=== PATIENT | female | born 1945 | race Caucasian/White ===

== ENCOUNTER 2020-08-24 22:15 | Emergency (ER) | payer MEDICARE, OTHER ==
[~2020-08-24] VITALS: Ht 172.7 cm; Wt 67.2 kg
[2020-08-24] MEDS ORDERED: ONDANSETRON 4MG/2ML VIAL IV ONE (22:50)
[2020-08-24] MEDS ORDERED: MORPHINE 4 MG/ML 1ML VIAL/SYRINGE (J2270) IV ONE (22:50)
[2020-08-24 23:15] LABS: BASO % 0.4 % (0.0-1.0); EOS # 0.1 10^3/uL (0.0-0.5); EOS % 0.9 % (0.0-3.0); HEMATOCRIT 39.5 % (36.0-47.0); HEMOGLOBIN 12.8 g/dl (12.0-15.5); LYMPH # 1.9 10^3/uL (1.5-5.0); LYMPH % 17.6 % (24.0-44.0); MEAN CORPUSCULAR HEMOGLOBIN 29.2 pg (27.0-33.0); MEAN CORPUSCULAR HGB CONC 32.4 g/dl (32.0-36.5); MEAN CORPUSCULAR VOLUME 90.2 fl (80.0-96.0); MONO # 0.7 10^3/uL (0.0-0.8); MONO % 6.7 % (2.0-8.0); NEUTROPHILS # 7.8 10^3/uL (1.5-8.5); PLATELET COUNT, AUTOMATED 294 10^3/uL (150-450); RED BLOOD COUNT 4.38 10^6/uL (4.00-5.40); WHITE BLOOD COUNT 10.5 10^3/uL (4.0-10.0)
[2020-08-24] MEDS ORDERED: fentaNYL 100 MCG/2 ML INJECTION (J3010) IV ONE (23:40)
[2020-08-24 23:53] LABS: ALBUMIN 3.8 GM/DL (3.2-5.2); ALT/SGPT 39 U/L (12-78); BILIRUBIN,DIRECT < 0.1 MG/DL (0.0-0.2); BILIRUBIN,TOTAL 0.2 MG/DL (0.2-1.0); BLOOD UREA NITROGEN 17 MG/DL (7-18); CARBON DIOXIDE LEVEL 21 MEQ/L (21-32); CHLORIDE LEVEL 108 MEQ/L (98-107); CREATININE FOR GFR 0.82 MG/DL (0.55-1.30); GLOMERULAR FILTRATION RATE > 60.0 (>39); GLUCOSE, FASTING 140 MG/DL (70-100); POTASSIUM SERUM 3.7 MEQ/L (3.5-5.1); SODIUM LEVEL 140 MEQ/L (136-145); TOTAL PROTEIN 7.4 GM/DL (6.4-8.2)
--- NOTE | 2020-08-25 00:39 | REPVR ---
PROCEDURE INFORMATION: Exam: XR Left Shoulder Exam date and time: 08/24/2020 10:59 PM Age: 74 years old Clinical indication: Pain; Shoulder; Left; Additional info: Fall TECHNIQUE: Imaging protocol: XR Left shoulder. Views: 2 or more views. COMPARISON: No relevant prior studies available. FINDINGS: The bones appear slightly demineralized. There is acute displaced fracture of involving the proximal left humerus extending from the surgical neck into the proximal diaphysis. Glenohumeral alignment is maintained. There is widening of the acromioclavicular joint space to 12.8 mm, likely postoperative. Coracoclavicular distance is preserved. IMPRESSION: Acute proximal humeral fracture. Findings discussed above in detail. Electronically signed by: Heriberto Pabon On 08/25/2020 00:38:28 AM
[2020-08-25] MEDS ORDERED: ceFAZolin SOD 1 GM in D5W MINI-BAG PLUS 50 ML IV ONE (00:40)
--- NOTE | 2020-08-25 00:42 | REPVR ---
PROCEDURE INFORMATION: Exam: XR Left Elbow Exam date and time: 08/24/2020 10:59 PM Age: 74 years old Clinical indication: Pain; Elbow; Left; Additional info: Fall TECHNIQUE: Imaging protocol: XR Left elbow. Views: 3 or more views. COMPARISON: None. FINDINGS: There is acute, slightly comminuted, displaced fracture involving the proximal ulna and olecranon process. There is proximal retraction of the olecranon process. No articular malalignment is seen at the elbow. No additional acute osseous injury is seen. Mild bony proliferative changes noted at the distal humeral medial and lateral epicondyles which may be related to old injuries or chronic repetitive trauma. There is soft tissue swelling around the elbow extending into the forearm as well as soft tissue lucencies consistent with soft tissue gas. There is soft tissue gas at the proximal ulnar fracture site, as well as within the elbow joint itself, suggesting open injury. IMPRESSION: Displaced intra-articular ulnar fracture. Soft tissue swelling and soft tissue gas, including gas at the fracture site and within the elbow joint itself. Findings discussed above in detail. Electronically signed by: Heriberto Pabon On 08/25/2020 00:42:09 AM
[2020-08-25] MEDS ORDERED: AMLO25TA PO (01:11)
[2020-08-25] MEDS ORDERED: TEMA15CA2 PO (01:11)
[2020-08-25] MEDS ORDERED: ECOT81TA5 PO (01:11)
[2020-08-25] MEDS ORDERED: BENA20TA PO (01:11)
[2020-08-25 01:13] LABS: RSV AMPLIFICATION NEGATIVE (NEGATIVE)
[2020-08-25] MEDS ORDERED: GENTAMICIN 120 MG in D5W 50 ML IV ONE (01:30)
[2020-08-25] MEDS ORDERED: fentaNYL 100 MCG/2 ML INJECTION (J3010) IV ONE (01:40)
[2020-08-25 03:07] VITALS: BP 146/80
[2020-08-25] MEDS ORDERED: ONDANSETRON 4MG/2ML VIAL IV ONE (03:10)
== END 2020-08-25 03:14 | disposition short-term general hospital (02) ==
LOC: M ED 22:15
DX: S52.002B Unspecified fracture of upper end of left ulna, initial encounter for open fracture type I or II (principal); S42.202A Unspecified fracture of upper end of left humerus, initial encounter for closed fracture; S43.102A Unspecified dislocation of left acromioclavicular joint, initial encounter; W10.8XXA Fall (on) (from) other stairs and steps, initial encounter; Z79.899 Other long term (current) drug therapy; Z79.82 Long term (current) use of aspirin; I10 Essential (primary) hypertension
CPT/HCPCS: 36415; 73030; 73080; 80048; 80076; 85025; 86850; 86900; 86901; 87631; 96365; 96375; 96376; 99284; J0690; J1580; J2270; J2405; J3010